=== PATIENT | female | born 1940 | race Caucasian/White ===

== ENCOUNTER → 2017-12-29 | Outpatient (CLI) | payer OTHER ==
[~2017-12-29] VITALS: Ht 165.1 cm; Wt 65.8 kg
[~2017-12-29] MED LIST: ASPIR 8181 MG PO; CALCIUM 600 +1 EAC1 PO; CENTRUM SILVER1 EAC4 PO; COREG25 MG PO; ENTOCORT EC 3 MG3 MG PO; LIPITOR 20 MG T20 M1 PO; LISINOPRIL10 MG PO; NEFAZODONE HCL150 MG PO; NEXIUM20 MG PO; OMEGA-31000 M1 PO; PREMARIN30 GM VAG; PROCTOSOL-HC28.35 GM RECTAL; SYNTHROID75 MCG PO; XANAX 0.25 MG0.25 MG PO
--- NOTE | ~2017-12-29 | P ---
[facility] [place] [address] PROCEDURE REPORT Name: GOYO GODWIN Room #: REG [facility]#: [id number] Admission: 12/29/17 Attend Phys: Sidney Ferraro Discharge: Date of : 40 Report #: [id number] THIS REPORT FOR: //name// CC: Sidney Adrian MD DATE OF SERVICE: 12/29/2017 PROCEDURE PERFORMED: Colonoscopy with biopsies. HISTORY OF PRESENT ILLNESS: The patient is a 77-year-old female here for a 5-year followup with history of collagenous colitis. She has tried multiple medications. The only thing that has been successful is Entocort. She has been able to titrate this over the years to every other day, sometimes every third to fourth day. She denies any blood in her stools. No family history of colon cancer. DESCRIPTION OF PROCEDURE: The risks and benefits of the procedure were explained to the patient, those risks including but not limited to bleeding, perforation, the risk of sedation. She understood these risks and gave informed consent. Sedation was given using propofol per anesthesia. Next, a digital rectal exam was initially performed, which was normal. Next, using a standard Olympus colonoscope, the scope was placed in the patient's anus and advanced under direct vision to the cecum. The overall prep was excellent. The cecum and ileocecal valve were normal in appearance. Ascending, transverse, descending and sigmoid colon were all normal. The rectal mucosa was normal. Random biopsies were obtained because of her history of microscopic colitis. On retroflexion, no abnormalities were noted. Scope was then withdrawn and the procedure terminated. The patient tolerated the procedure well. RECOMMENDATIONS: Await biopsy results. Thank you for allowing me to participate in her care. <ELECTRONICALLY SIGNED> By: Sidney Quarles MD 01/01/18 1041 [id number] 13 Sidney Quarles MD /nt
--- NOTE | ~2017-12-29 | PATH ---
[facility] [address] [place] [address] PATHOLOGY RPT PROCEDURE Name: ROZINA MOHAMUD Room #: REG [facility].#: [id number] Admission: 12/29/17 Date of : 40 Discharge: Report #: [id number] Path Case #: [id number] [facility] Accession Number: [id number] . 01 Material submitted: . RANDOM COLON BIOPSIES . 01 Clinical history: . History of cholangio colitis Rule out colitis . 02 Diagnosis: Colonic mucosa "random colon biopsies R/O colitis": - Consistent with collagenous colitis. - Chronic colitis with lamina propria and intraepithelial moderate number of eosinophils. (SHA:gael; 12/31/2017) QMS/12/31/2017 . 02 Comment: Lamina propria and intraepithelial eosinophils can be seen with medications, allergic reactions, autoimmune diseases and infections This case is also reviewed by Dr Keturah Thomas. There is no evidence of atypia or malignancy. (SHA:gael; 12/31/2017) . 02 Electronically signed: . Kashif Rivera MD, Pathologist NPI- [id number] . 01 Gross description: . The specimen is received in formalin, labeled "Rozina Mohamud, mally BX of colon" and consists of multiple fragments of martins tissue measuring 1.1 x 0.4 x 0.2 cm in aggregate which are entirely submitted in A1. (SDY; 12/30/2017) SYU/SYU . 02 Pathologist provided ICD-10: K52.9 . 02 CPT . 046408 Specimen Comment: A courtesy copy of this report has been sent to Specimen Comment: [phone], . Specimen Comment: Report sent to / DR PERDOMO Performed at: [address] [address] PATHOLOGY RPT PROCEDURE Name: ROZINA MOHAMUD Edel Room #: REG CLI [facility]#: [id number] Admission: 12/29/17 Date of : 40 Discharge: Report #: [id number] Path Case #: [id number] [address] [id number] MD Dontae Medrano MD Phone: [phone] Performed at: [address] [id number] MD Joslyn Anderson MD Phone: [phone]
== END | disposition home or self-care (01) ==
LOC: GI 07:48
DX: K52.9 Noninfective gastroenteritis and colitis, unspecified (principal); I10 Essential (primary) hypertension; E78.00 Pure hypercholesterolemia, unspecified; K21.9 Gastro-esophageal reflux disease without esophagitis; E03.9 Hypothyroidism, unspecified; F41.9 Anxiety disorder, unspecified; Z90.710 Acquired absence of both cervix and uterus; Z98.41 Cataract extraction status, right eye; Z87.891 Personal history of nicotine dependence; Z98.42 Cataract extraction status, left eye; Z98.890 Other specified postprocedural states; Z79.899 Other long term (current) drug therapy
CPT/HCPCS: 62110; 62900